=== PATIENT | female | born 1955 | race American Indian/Alaskan Native ===

== ENCOUNTER 2022-06-21 13:37 | Emergency (ER) | payer MEDICARE ==
[2022-06-21 14:10] VITALS: BP 168/77
== END 2022-06-21 15:29 | disposition left against medical advice (07) ==
LOC: ED 13:37
DX: M79.672 Pain in left foot (principal); Z53.21 Procedure and treatment not carried out due to patient leaving prior to being seen by health care provider

== ENCOUNTER 2022-06-22 05:11 | Emergency (ER) | payer MEDICARE ==
--- NOTE | 2022-06-22 05:47 | XRay Report ---
Left foot, 3 views HISTORY: Injury COMPARISON: None FINDINGS: There is an acute mildly displaced oblique fracture extending through the midshaft of the l eft fifth metatarsal. No additional fracture. No joint malalignment. Lisfranc interval is preserved. Soft tissue swelling of the dorsum of the forefoot. IMPRESSION: Acute fifth metatarsal shaft fracture. Signer Name: Kristian Farmer MD Signed: 06/22/2022 5:43 AM Workstation Name: [id number]
--- NOTE | 2022-06-22 11:17 | Emergency Department Report ---
ED Lower Extremity HPI - General Chief Complaint: Extremity Injury, Lower Stated Complaint: LEFT FOOT INJURY Time Seen by Provider: 06/22/22 09:38 Source: patient Mode of arrival: Ambulatory Limitations: No Limitations - History of Present Illness Initial Comments: 67-year-old black female with a past medical history of anal cancer presents to the emergency department for evaluation of left foot pain and swelling. She states that she injured her left foot while attempting to get up yesterday and has had pain and swelling to the area since then. She states that she has been unable to bear weight. MD Complaint: foot injury -: Sudden, days(s) (1) Injury: Foot: Left Place: home Severity: moderate Severity scale (0 -10): 7 Worsens With: weight bearing Associated Symptoms: swelling, unable to bear weight. denies: snap/pop sensation, numbness, tingling - Related Data Allergies Allergy/AdvReac Type Severity Reaction Status Date / Time No Known Allergies Allergy Unverified 06/21/22 14:12 ED Review of Systems ROS: Stated complaint: LEFT FOOT INJURY Other details as noted in HPI Constitutional: no symptoms reported Respiratory: denies: shortness of breath Cardiovascular: denies: chest pain, palpitations Gastrointestinal: denies: abdominal pain, nausea, vomiting Musculoskeletal: denies: back pain Neurological: denies: headache ED Past Medical Hx - Past Medical History Additional medical history: cancer colon ED Physical Exam - General Limitations: No Limitations General appearance: alert, in no apparent distress - Head Head exam: Present: atraumatic, normocephalic - Eye Eye exam: Present: normal appearance. Absent: conjunctival injection - Neck Neck exam: Present: normal inspection - Respiratory Respiratory exam: Absent: respiratory distress - Cardiovascular Cardiovascular Exam: Present: regular rate - GI/Abdominal GI/Abdominal exam: Absent: distended, tenderness - Expanded Lower Extremity Exam Left Lower Leg exam: Present: normal inspection Ankle exam: Present: normal inspection Foot/Toe exam: Present: tenderness, swelling, tenderness at base of 5th metatarsal. Absent: full ROM, abrasion, laceration, ecchymosis, deformity, crepidus, dislocation, erythema, nail avulsion, subungual hematoma Neuro vascular tendon exam: Present: no vascular compromise. Absent: pulse deficit, abnormal cap refill, sensory deficit, tendon deficit, extremity cold to touch, pallor Gait: Positive: unable to bear weight - Back Exam Back exam: Present: normal inspection - Neurological Exam Neurological exam: Present: alert, oriented X3 - Psychiatric Psychiatric exam: Present: normal affect, normal mood - Skin Skin exam: Present: warm, dry, intact, normal color ED Course Vital Signs 06/22/22 05:16 Temperature 97.7 F Pulse Rate 88 Respiratory 18 Rate Blood Pressure 196/89 O2 Sat by Pulse 96 Oximetry - Orthopedic Splinting/Casting Injury #1 Side: left Lower Extremity Injury Location: foot Lower Extremity Immobilizer: posterior splint Other Orthopedic Equipment: crutches (Short leg) Additional Comments: CMS intact after application. Patient tolerated well. ED Lower Extremity MDM - Radiology Data Radiology results: report reviewed Left foot x-ray: FINDINGS: There is an acute mildly displaced oblique fracture extending through the midshaft of the left fifth metatarsal. No additional fracture. No joint malalignment. Lisfranc interval is preserved. Soft tissue swelling of the dorsum of the forefoot. IMPRESSION: Acute fifth metatarsal shaft fracture. - Medical Decision Making 67-year-old black female with a past medical history of anal cancer presents to the emergency department for evaluation of left foot pain and swelling. She states that she injured her left foot while attempting to get up yesterday and has had pain and swelling to the area since then. She states that she has been unable to bear weight. Left foot x-ray positive for acute fracture to shaft of fifth metatarsal. Patient placed in posterior short leg splint, given crutches, and advised to follow-up with orthopedics for further evaluation and management. Patient declined pain medication stating that she already had more than enough pain medication at home. She is advised to return to the emergency department as needed. Critical care attestation.: If time is entered above; I have spent that time in minutes in the direct care of this critically ill patient, excluding procedure time. ED Disposition Clinical Impression: Metatarsal bone fracture Qualifiers: Encounter type: initial encounter Metatarsal bone: fifth Fracture type: closed Fracture alignment: nondisplaced Laterality: left Qualified Code(s): S92.355A - Nondisplaced fracture of fifth metatarsal bone, left foot, initial encounter for closed fracture Disposition: HOME / SELF CARE / HOMELESS Is pt being admited?: No Does the pt Need Aspirin: No Condition: Stable Instructions: Cast or Splint Care, Adult, [id number], Metatarsal Fracture, Metatarsal Fracture Rehab-SportsMed Additional Instructions: Follow-up with orthopedics for further evaluation and management. Return to the emergency department as needed. Referrals: CANDY WELLER MD [Staff Physician] - 3-5 Days Time of Disposition: 11:24
[2022-06-22 11:52] VITALS: BP 156/86
== END 2022-06-22 11:41 | disposition home or self-care (01) ==
LOC: ED 05:11
DX: S92.355A Nondisplaced fracture of fifth metatarsal bone, left foot, initial encounter for closed fracture (principal); X58.XXXA Exposure to other specified factors, initial encounter; Y93.89 Activity, other specified; Y92.89 Other specified places as the place of occurrence of the external cause; Y99.8 Other external cause status
CPT/HCPCS: 99283